=== PATIENT | male | born 1980 | race Two or more races ===

== ENCOUNTER 2023-02-05 13:48 | Emergency (ER) | payer OTHER ==
[~2023-02-05] VITALS: Ht 170.2 cm; Wt 77.1 kg
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
--- NOTE | 2023-02-05 14:19 | NUR ---
DR ALMAZAN AT BEDSIDE
--- NOTE | 2023-02-05 14:46 | NUR ---
XRAY AT BEDSIDE
--- NOTE | 2023-02-05 15:35 | NUR ---
Place splint on patient
[2023-02-05 15:54] VITALS: BP 123/92
--- NOTE | 2023-02-05 15:54 | NUR ---
Patient discharged to home in stable condition. Written and verbal after care instructions given. Patient verbalizes understanding of instruction.
== END 2023-02-05 15:55 | disposition home or self-care (01) ==
LOC: ER 13:57
DX: M65.352 Trigger finger, left little finger (principal); Z60.2 Problems related to living alone
CPT/HCPCS: 73140-TC

== ENCOUNTER 2024-03-13 12:30 | Inpatient (IN) | payer OTHER ==
[~2024-03-13] VITALS: Ht 167.6 cm; Wt 81.6 kg
[2024-03-13] MEDS ORDERED: ONDANSETRON HCL/PF 4 MG/2 ML VIAL ONE (13:15)
[2024-03-13] MEDS ORDERED: MORPHINE SULFATE INJ 4 MG/ML DISP.SYRIN ONE (13:15)
[2024-03-13 13:19] LABS: BASOPHILS % (AUTO) 0.3 % (0.0-2.0); EOSINOPHILS # (AUTO) 0.1 K/uL (0.0-0.7); EOSINOPHILS % (AUTO) 0.7 % (0.0-6.0); HEMATOCRIT 39 % (39-51); LYMPHOCYTES # (AUTO) 1.2 K/uL (0.8-4.8); LYMPHOCYTES % (AUTO) 13.1 % (20.0-44.0); MEAN CORPUSCULAR HEMOGLOBIN 28 PG (26.0-33.0); MEAN CORPUSCULAR HGB CONC 33 g/dl (31.0-36.0); MEAN CORPUSCULAR VOLUME 85 fL (80-96); MONOCYTES % (AUTO) 10.6 % (2.0-12.0); NEUTROPHILS % (AUTO) 75.3 % (43.0-81.0); PLATELET COUNT (AUTO) 231 K/uL (150-450); RED BLOOD CELL COUNT(AUTO) 4.61 MIL/uL (4.5-6.0); RED CELL DISTRIBUTION WIDTH 12.6 % (11.5-15.0); WHITE BLOOD COUNT (AUTO) 9.3 K/uL (4.3-11.0)
[2024-03-13] MEDS: IV NS 0.9% 1,000 ML BAG IV ONE (13:20)
[2024-03-13] MEDS: ONDANSETRON HCL/PF 4 MG/2 ML VIAL IVP ONE (13:20)
[2024-03-13] MEDS: MORPHINE SULFATE INJ 2 MG/ML DISP.SYRIN IV ONE (13:21)
[2024-03-13 13:27] LABS: CREATININE 0.9 mg/dL (0.6-1.3); POTASSIUM 3.5 mmol/L (3.5-5.1)
[2024-03-13] MEDS: PIPERACILLIN /TAZOBACTAM 3.375 G in IV D5W 50 ML IV ONE (13:27)
[2024-03-13 13:33] LABS: ALBUMIN 2.7 g/dL (3.4-5.0); BILIRUBIN,DIRECT 0.1 mg/dL (0.0-0.2); BILIRUBIN,TOTAL 0.6 mg/dL (0.2-1.0); TOTAL PROTEIN, SERUM 8.4 g/dL (6.4-8.2)
[2024-03-13 13:36] LABS: LACTIC ACID 0.8 mmol/L (0.4-2.0)
[2024-03-13] MEDS ORDERED: CT SWABBABLE VALVE TRANS SET 1 EA INFUS.SET MC ONE (14:07)
[2024-03-13] MEDS ORDERED: IOHEXOL-300 100 ML VIAL IV ONE (14:07)
[2024-03-13] MEDS ORDERED: IV NS 0.9% 250 ML IV ONE (14:07)
[2024-03-13 20:00] VITALS: BP 106/77; TEMP 98.2; O2SAT 99
[2024-03-13] MEDS ORDERED: ONDANSETRON HCL/PF 4 MG/2 ML VIAL IVP PRN (20:00)
[2024-03-13] MEDS ORDERED: ACETAMINOPHEN 325 MG TABLET PO PRN (20:00)
[2024-03-13] MEDS ORDERED: Z GUARD REMEDY 4 OZ OINT TP PRN (20:00)
[2024-03-13] MEDS ORDERED: MAGNESIUM HYDROXIDE 30 ML UDC PO PRN (20:00)
[2024-03-13] MEDS: VANCOMYCIN HCL 1.25 GM in IV D5W 250 ML IV ONE (20:38)
[2024-03-13] MEDS: ENOXAPARIN SODIUM 40 MG/0.4 ML DISP.SYRIN SQ SCH (21:12)
[2024-03-13] MEDS: MORPHINE SULFATE INJ 4 MG/ML DISP.SYRIN IV PRN (21:30)
[2024-03-13] MEDS: VANCOMYCIN 500 MG in IV D5W 100ml IV ONE (22:19)
[2024-03-14] MEDS: PIPERACILLIN /TAZOBACTAM 3.375 G in IV D5W 50 ML IV SCH (00:05)
[2024-03-14 04:00] VITALS: BP 99/77; TEMP 98.2; O2SAT 99
[2024-03-14] MEDS: VANCOMYCIN 1 GM in IV D5W 250ml IV SCH (05:34)
[2024-03-14 06:54] LABS: BASOPHILS % (AUTO) 0.3 % (0.0-2.0); EOSINOPHILS # (AUTO) 0.1 K/uL (0.0-0.7); EOSINOPHILS % (AUTO) 0.7 % (0.0-6.0); HEMATOCRIT 38 % (39-51); HEMOGLOBIN 12.9 g/dL (13.5-17.5); LYMPHOCYTES # (AUTO) 1.2 K/uL (0.8-4.8); LYMPHOCYTES % (AUTO) 12.9 % (20.0-44.0); MEAN CORPUSCULAR HEMOGLOBIN 29 PG (26.0-33.0); MEAN CORPUSCULAR HGB CONC 34 g/dl (31.0-36.0); MEAN CORPUSCULAR VOLUME 86 fL (80-96); MONOCYTES % (AUTO) 10.3 % (2.0-12.0); NEUTROPHILS # (AUTO) 7.2 K/uL (1.8-8.9); NEUTROPHILS % (AUTO) 75.8 % (43.0-81.0); PLATELET COUNT (AUTO) 254 K/uL (150-450); RED BLOOD CELL COUNT(AUTO) 4.45 MIL/uL (4.5-6.0); RED CELL DISTRIBUTION WIDTH 12.7 % (11.5-15.0); WHITE BLOOD COUNT (AUTO) 9.5 K/uL (4.3-11.0)
[2024-03-14] MEDS: PANTOPRAZOLE 40 MG TABLET.DR PO SCH (07:30)
[2024-03-14 07:32] LABS: CALCIUM, SERUM 8.4 mg/dL (8.5-10.1); CREATININE 0.9 mg/dL (0.6-1.3); MAGNESIUM 2.1 mg/dL (1.8-2.4); PHOSPHORUS 3.3 mg/dL (2.5-4.9); POTASSIUM 3.7 mmol/L (3.5-5.1)
[2024-03-14 08:00] VITALS: BP 122/84; TEMP 98.5; O2SAT 99
[2024-03-14] MEDS ORDERED: FENTANYL PF 100MCG/2ML AMPUL ONE (11:46)
[2024-03-14] MEDS ORDERED: MEPERIDINE25 MG SYR 25 MG/ML VIAL ONE (11:46)
[2024-03-14] MEDS ORDERED: MIDAZOLAM HCL 2 MG/2ML VIAL ONE (11:46)
[2024-03-14 16:00] VITALS: BP 102/64; TEMP 98.4; O2SAT 99
[2024-03-14 20:00] VITALS: BP 100/61; TEMP 98.1; O2SAT 98
[2024-03-14] MEDS: IV LR 1000 ML 1,000 ML IV PRN (20:51)
[2024-03-14] MEDS: GABAPENTIN 100 MG CAPSULE PO SCH (21:40)
[2024-03-14] MEDS: CELECOXIB 100 MG CAPSULE PO SCH (21:40)
[2024-03-14] MEDS: ACETAMINOPHEN 325 MG TABLET PO SCH (21:40)
[2024-03-15 04:00] VITALS: BP 99/69; TEMP 97.3; O2SAT 98
[2024-03-15 08:00] VITALS: BP 101/64; TEMP 97.9; O2SAT 96
[2024-03-15] MEDS: NICOTINE PATCH (21MG) 21 MG PATCH.TD24 TD SCH (11:45)
[2024-03-15] MEDS ORDERED: PIPERACILLIN /TAZOBACTAM 3.375 G in IV D5W 100 ML IV SCH (13:00)
[2024-03-15] MEDS ORDERED: SULF1TAB48 PO (14:08)
[2024-03-15] MEDS ORDERED: DOXY100T2 PO (14:08)
== END 2024-03-15 14:34 | disposition home or self-care (01) | DRG 223 ==
LOC: ER 12:35 → MEDSG1 16:00
PROVIDERS: ADMIT Nurse Practitioner Acute Care; ATTEND Nurse Practitioner Acute Care
PROC: 0D9P0ZZ Drainage of Rectum, Open Approach (ICD-10-PCS; principal; 2024-03-14)
DX: K61.1 Rectal abscess (principal); E87.1 Hypo-osmolality and hyponatremia; Z87.891 Personal history of nicotine dependence
CPT/HCPCS: 36415; 71045-TC; 80048-TC; 80061-TC; 80076-TC; 80202-TC; 83605-TC; 83690-TC; 83735-TC; 84100-TC; 85025-TC; 87040-TC; A4217; A4223; A6253; G0378; J1100; J1650; J1885; J2175; J2250; J2270; J2405; J2543; J2704; J2765; J3010; J3370; J3490; J7030; J7050; J7060; J7120; Q9967

== ENCOUNTER 2024-03-16 12:24 | Emergency (ER) | payer OTHER ==
[~2024-03-16] VITALS: Ht 167.6 cm; Wt 79.8 kg
[~2024-03-16 12:24] MED LIST: DOXY100T2 PO; SULF1TAB48 PO
[2024-03-16 12:32] VITALS: BP 131/67; TEMP 98.7
[2024-03-16] MEDS ORDERED: HYDROCODONE/APAP 5/325MG TABLET ONE (13:17)
[2024-03-16] MEDS: HYDROCODONE/APAP 10/325MG TABLET PO ONE (13:20)
[2024-03-16] MEDS: HYDROCODONE/APAP 5/325MG TABLET PO ONE (13:20)
[2024-03-16 13:47] VITALS: O2SAT 100
== END 2024-03-16 13:49 | disposition home or self-care (01) ==
LOC: ER 12:29
DX: K61.1 Rectal abscess (principal); Z60.2 Problems related to living alone
CPT/HCPCS: 99283; A6407 ×2